=== PATIENT | male | born 1995 | race Two or more races ===

== ENCOUNTER 2018-03-22 18:20 | Emergency (ER) | payer OTHER ==
[2018-03-22] MEDS ORDERED: IBUPROFEN 600 MG TAB PO ONE (19:02)
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
[2018-03-22 20:01] VITALS: BP 127/70
== END 2018-03-22 20:01 | disposition home or self-care (01) ==
DX: S29.019A Strain of muscle and tendon of unspecified wall of thorax, initial encounter (principal); V49.60XA Unspecified car occupant injured in collision with unspecified motor vehicles in traffic accident, initial encounter; Y92.410 Unspecified street and highway as the place of occurrence of the external cause; Y93.9 Activity, unspecified; Y99.9 Unspecified external cause status